=== PATIENT | male | born 1950 | race Caucasian/White ===

== ENCOUNTER 2022-08-31 06:12 | Emergency (ER) | payer MEDICARE, BC, SELFPAY ==
[2022-08-31 06:16] VITALS: BP 188/111; PULSE 88; RESP 18; TEMP 36.5; O2SAT 95; BMI 28.0
--- NOTE | 2022-08-31 06:33 | ED.GENADULT ---
HPI - General Adult General Chief complaint: Headache/Migraine Stated complaint: Severe Headache/sore throat Time Seen by Provider: 08/31/22 06:24 History of Present Illness HPI narrative: Pt is a 71 year old gentleman who presents with severe headache. Pt has been struggling with headaches for the past several months. The headache is diffuse and dull. No neurological symptoms. No stiff neck, fevers or chills. Minimal nausea. No vomiting. Pt has not tried any over the counter medications as he feels that those do no work for him. No photophobia or chest pain. Pt also has congestion and pharyngitis. No difficulty swallowing. Related Data Home Medications Medication Instructions Recorded Confirmed albuterol sulfate 90 mcg/actuation 2 inhalation PRN 05/27/22 08/15/22 aerosol inhaler escitalopram oxalate 20 mg tablet 20 mg PO DAILY 05/27/22 08/15/22 finasteride 5 mg tablet 5 mg PO DAILY 05/27/22 08/15/22 fluticasone 250 mcg-salmeterol 50 1 inh inhalation BID PRN 05/27/22 08/15/22 mcg/dose blistr powdr for inhalation omeprazole 40 mg capsule,delayed mg PO DAILY 05/27/22 08/15/22 release tamsulosin 0.4 mg capsule 0.8 mg PO DAILY 05/27/22 08/15/22 lisinopril 20 mg tablet 40 mg PO DAILY 07/19/22 08/15/22 Previous Rx's Medication Instructions Recorded celecoxib 200 mg capsule 200 mg PO BID #60 caps 07/19/22 azithromycin 250 mg tablet See Rx Instructions PO .COMPLEX #6 08/15/22 tabs Allergies Allergy/AdvReac Type Severity Reaction Status Date / Time rosuvastatin AdvReac Intermediate Diarrhea Verified 08/15/22 09:55 atorvastatin AdvReac Mild Diarrhea Verified 08/15/22 09:55 Clavulanate Allergy Mild Rash Uncoded 08/15/22 09:55 AMOXICILLIN-POT CLAVULANATE Allergy Unknown Uncoded 08/15/22 09:55 Review of Systems Status of ROS: Reports: 10 or more systems reviewed and unremarkable except as noted in History and below 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 EYES: No scleral icterus. ENT: Tympanic membranes and oropharynx normal. THYROID: no thyroid nodules or thyromegaly. LYMPH: No supraclavicular or cervical lymphadenopathy. SKIN: Visible skin seen during exam normal or with benign process only. EXT: No dependent lower extremity pedal edema. HEART: Regular rate and rhythm with no murmurs, rubs, or gallops. LUNGS: Clear to auscultation bilaterally with no crackles or wheezes. ABD: Soft, non tender, non distended. PSYCH: Good eye contact, speech is not pressured. Const: Vital Signs, click to edit/add: Vital Signs - 24 hr 08/31/22 06:16 Temperature 97.7 F Pulse Rate [Right Pulse Oximeter] 88 Respiratory Rate 18 Blood Pressure [Ri ght Upper Arm] 188/111 H Pulse Oximetry 95 Oxygen Delivery Me thod Room Air Course Course Hospital Course: Pt seen and examined. Strep, COVID, Influenza and RSV swabs collected. Pt given Normal Saline 1 liter, 4 of IV Zofran, 30 mg IV Toradol and 50 mg of IV Benadryl. Reevaluation(s) Reevaluation #1: Pt feeling better. Swabs still pending. Time: 07:27 Vital Signs Vital signs: Initial Vital Signs Temperature 97.7 F 08/31/22 06:16 Temperature Source Temporal Artery Scan 08/31/22 06:16 Pulse Rate 88 08/31/22 06:16 Respiratory Rate 18 08/31/22 06:16 Blood Pressure 188/111 H 08/31/22 06:16 Blood Pressure Mean 136 08/31/22 06:16 Blood Pressure Position Sitting 08/31/22 06:16 Pulse Oximetry 95 08/31/22 06:16 Oxygen Delivery Method 08/31/22 06:16 Vital Signs Temperature 97.7 F 08/31/22 06:16 Pulse Rate 88 08/31/22 06:16 Respiratory Rate 18 08/31/22 06:16 Blood Pressure 188/111 H 08/31/22 06:16 Pulse Oximetry 95 08/31/22 06:16 Oxygen Delivery Method 08/31/22 06:16 Temperature 97.7 F 08/31/22 06:16 Pulse Rate 88 08/31/22 06:16 Respiratory Rate 18 08/31/22 06:16 Blood Pressure 188/111 H 08/31/22 06:16 Pulse Oximetry 95 08/31/22 06:16 Oxygen Delivery Method 08/31/22 06:16 Medical Decision Making MDM Narrative Medical decision making narrative: Pt is a 71 year old gentleman with a history of chronic headaches who presents with worsening of diffuse headache as well as pharyngitis. Viral swabs collected. Vitals stable with exception of elevated blood pressure. Pt's exam normal. Pt given normal saline, zofran, toradol and benadryl and discharged with outpt follow up. We will contact him based on his viral swab results. Differential Diagnosis Differential Diagnosis: Chronic headache, viral syndrome, covid, strep throat, cluster headache, Discharge Plan Discharge Clinical Impression: Headache Patient Disposition: Home, Self-Care Condition: Stable Instructions: Acute Headache (ED) Additional Instructions: Rest Continue current medications We will contact you based on your viral swabs Activity Level: Activity as Tolerated Discharge Diet: Regular Prescriptions: No Action escitalopram oxalate 20 mg tablet 20 mg PO DAILY finasteride 5 mg tablet 5 mg PO DAILY albuterol sulfate 90 mcg/actuation HFA aerosol inhaler 2 inhalation PRN tamsulosin 0.4 mg capsule 0.8 mg PO DAILY omeprazole 40 mg capsule,delayed release(DR/EC) PO DAILY fluticasone propion-salmeterol 250-50 mcg/dose blister with device 1 inh inhalation BID PRN celecoxib 200 mg capsule 200 mg PO BID Qty: 60 12RF lisinopril 20 mg tablet 40 mg PO DAILY azithromycin 250 mg tablet See Rx Instructions PO .COMPLEX Qty: 6 0RF Rx Instructions: For 250 mg dose pack: take 500 mg today (day 1), then 250 mg for 4 days (days 2-5) PO Follow Up/Referrals: Marjan Sheth MD [Primary Care Provider] - Stand Alone Forms: [employer] Info Instructions
[2022-08-31] MEDS: ONDANSETRON 2 MG/ML inj 4 MG IVP (06:58)
[2022-08-31] MEDS: diphenhydrAMINE 50 MG/ML inj IVP (06:58)
[2022-08-31] MEDS: KETOROLAC 30 MG/ML inj IVP (06:58)
[2022-08-31] MEDS: 0.9 % SODIUM CHLORIDE 1000 ml 1,000 ML IV (06:58)
[2022-08-31 07:21] LABS: Strep A DNA Probe* NOT DETECTED (Not Detectd)
[2022-08-31 07:32] LABS: PCR FLU A Negative PCR FLU A (Negative); PCR FLU B Negative PCR FLU B (Negative); PCR RSV Negative PCR RSV (Negative)
[2022-08-31 07:34] LABS: SARS PCR* Negative SARS-CoV-2 (Negative)
[2022-08-31 08:00] VITALS: BP 154/90; PULSE 87; RESP 20; O2SAT 93
== END 2022-08-31 08:45 | disposition home or self-care (01) ==
PROVIDERS: Emergency Provider Internal Medicine; PCP Family Medicine
DX: R51.9 Headache, unspecified (principal); J02.9 Acute pharyngitis, unspecified; R03.0 Elevated blood-pressure reading, without diagnosis of hypertension; Z88.0 Allergy status to penicillin; Z88.1 Allergy status to other antibiotic agents; Z88.8 Allergy status to other drugs, medicaments and biological substances; Z87.891 Personal history of nicotine dependence; Z20.822 Contact with and (suspected) exposure to COVID-19
CPT/HCPCS: 87502; 87634; 87635; 87651; 96361; 96374; 96375; 99283; 99284; J1200; J1885; J2405; J7030

== ENCOUNTER 2022-09-02 11:05 | Outpatient (CLI) | payer MEDICARE, BC, SELFPAY ==
[2022-09-02 22:18] LABS: Albumin* 4.4 g/dL (3.3-5.0); Chloride* 103 mmol/L (96-114); Sodium* 141 mmol/L (135-149)
[2022-09-02 22:19] LABS: Potassium* 4.1 mmol/L (3.6-5.1)
[2022-09-02 22:20] LABS: Cholesterol* 186 mg/dL (90-199)
[2022-09-02 22:21] LABS: Alanine Aminotransferase* 33 U/L (4-50); Alkaline Phosphatase* 65 U/L (40-150); Aspartate Amino Transferase* 30 U/L (12-35); Bilirubin Total* 1.1 mg/dL (0.1-1.5); Blood Urea Nitrogen* 17 mg/dL (7-30); Carbon Dioxide* 29 mmol/L (20-32); Creatinine* 1.1 mg/dL (0.5-1.5); Estimated Glomerular Filt Rate 73 ml/min; Glucose* 135 mg/dL (60-115); Total Protein* 7.1 g/dL (6.0-8.3); Triglycerides* 140 mg/dL (40-149)
[2022-09-02 22:22] LABS: Calcium* 9.3 mg/dL (8.4-10.6); HDL Cholesterol* 54 mg/dL (>=40); LDL Cholesterol Calculated 104 mg/dL (<100)
[2022-09-02 22:26] LABS: Vitamin D 25 Hydroxy* 48 ng/mL (30-80)
[2022-09-02 22:58] LABS: Hepatitis C Virus Antibody* Negative (Negative)
== END 2022-09-02 11:06 | disposition home or self-care (01) ==
PROVIDERS: PCP Family Medicine; Visit Provider Family Medicine
DX: Z00.00 Encounter for general adult medical examination without abnormal findings (principal); R51.9 Headache, unspecified; E78.5 Hyperlipidemia, unspecified; M85.80 Other specified disorders of bone density and structure, unspecified site; R53.83 Other fatigue; Z13.6 Encounter for screening for cardiovascular disorders; Z11.59 Encounter for screening for other viral diseases
CPT/HCPCS: 80053; 80061; 82306; 86617; 86618; 86803

== ENCOUNTER 2022-10-28 10:28 | Emergency (ER) | payer MEDICARE, BC, SELFPAY ==
[2022-10-28 10:45] VITALS: BP 162/99; PULSE 84; RESP 18; TEMP 36.4; O2SAT 97; BMI 27.3
--- NOTE | 2022-10-28 10:57 | XR_ITS ---
Patient: BELA MEEKS Facility:?[facility] Patient ID:?[id number] Site Patient ID:?[id number]. Site :?[id number] Study:?XRay-Extremity Left HAND 3 VIEW-10/28/2022 11:15:58 AM Ordering Physician:?UNKNOWN UNKNOWN Final Report: INDICATION: Laceration along the palm. TECHNIQUE: Three views of the left hand. FINDINGS: No acute fracture, dislocation, or erosion. There is likely soft tissue swelling along the thenar eminence. On only one view there are 2 very tiny radiodensities apparently at the thenar eminence. Two tiny radiodense foreign bodies cannot be excluded although please note they are not seen on the other two views. IMPRESSION: 1. No acute fracture dislocation. 2. Soft tissue swelling seen at the eminence. 3. Two tiny radiodensity seen on the oblique view, not seen on the other views, potentially tiny radiodense foreign bodies in the soft tissues of the thenar eminence. Dictated by Isidoro Vegas MD @ 10/28/2022 11:22:44 AM Signed by:?Isidoro Vegas MD @10/28/2022 11:22:44 AM (Electronic Signature)
--- NOTE | 2022-10-28 11:00 | ED.WOUNDLAC ---
HPI - Wound/Laceration General Chief Complaint: Laceration/Wound Stated Complaint: r. hand lac Time Seen by Provider: 10/28/22 10:53 History of Present Illness HPI narrative: Pt is a healthy 71 year old gentleman who presents after lacerating his left palm with a laboratory apparatus glass grinder while making a stove for a sauna. Pt has full range of motion of the left hadn. No neurovascular defects. Pt is unsure of the status of his tetanus shot. Pt states the pain is mild-moderate. Pt otherwise uninjured and feels well. Pt is not on anticoagulants or antiplatelet agents. Related Data Home Medications Medication Instructions Recorded Confirmed albuterol sulfate 90 mcg/actuation 2 inhalation PRN 05/27/22 10/15/22 aerosol inhaler finasteride 5 mg tablet 5 mg PO DAILY 05/27/22 10/15/22 fluticasone 250 mcg-salmeterol 50 1 inh inhalation BID PRN 05/27/22 10/15/22 mcg/dose blistr powdr for inhalation omeprazole 40 mg capsule,delayed mg PO DAILY 05/27/22 10/15/22 release tamsulosin 0.4 mg capsule 0.8 mg PO DAILY 05/27/22 10/11/22 escitalopram oxalate 20 mg tablet 20 mg PO QDAY 10/15/22 10/15/22 sumatriptan succinate 50 mg tablet 50 mg PO ONCE PRN 10/15/22 Previous Rx's Medication Instructions Recorded lisinopril 40 mg tablet 40 mg PO QDAY #90 tabs 09/02/22 bupropion HCl 150 mg 24 hr tablet, 150 mg PO QAM #90 tabs 10/25/22 extended release Allergies Allergy/AdvReac Type Severity Reaction Status Date / Time rosuvastatin AdvReac Intermediate Diarrhea Verified 10/15/22 15:23 atorvastatin AdvReac Mild Diarrhea Verified 10/15/22 15:23 Clavulanate Allergy Mild Rash Uncoded 10/15/22 15:23 AMOXICILLIN-POT CLAVULANATE Allergy Unknown Uncoded 10/15/22 15:23 Review of Systems Status of ROS: Reports: 6 or more systems reviewed and unremarkable except as noted in History and below [facility] Medical History Acute appendicitis Acute maxillary sinusitis Asthma with acute exacerbation Umbilical hernia Surgical History History of colonoscopy History of laparoscopic appendectomy History of sinus surgery History of umbilical hernia repair Family History Father Coronary artery disease Brother Prostate cancer Other Anxiety disorder Social History Narrative: Former smoker 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 EYES: No scleral icterus. ENT: Tympanic membranes and oropharynx normal. THYROID: no thyroid nodules or thyromegaly. LYMPH: No supraclavicular or cervical lymphadenopathy. SKIN: Well-approximated moderately deep laceration linearly across the palmar aspect of the hand approximately 7 cm in length. EXT: No dependent lower extremity pedal edema. ABD: Soft, non tender, non distended. PSYCH: Good eye contact, speech is not pressured. Neuro No defects noted Const: Vital Signs, click to edit/add: Vital Signs - 24 hr 10/28/22 10:45 Temperature 97.6 F Pulse Rate [Right Pulse Oximeter] 84 Respiratory Rate 18 Blood Pressure [Ri ght Upper Arm] 162/99 H Pulse Oximetry 97 Oxygen Delivery Me thod Room Air Course Course Hospital Course: X ray ordered. Verifying tetanus status. Wound cleaned with soap and water. Wound anesthetized with 7 cc of 2% lidocaine. Wound then closed using sterile technique with 13 3-0 Ethylon sutures. Wound cleaned and dressed. Tdap up to date. Vital Signs Vital signs: Initial Vital Signs Temperature 97.6 F 10/28/22 10:45 Temperature Source Temporal Artery Scan 10/28/22 10:45 Pulse Rate 84 10/28/22 10:45 Respiratory Rate 18 10/28/22 10:45 Blood Pressure 162/99 H 10/28/22 10:45 Blood Pressure Mean 120 10/28/22 10:45 Blood Pressure Position Sitting 10/28/22 10:45 Pulse Oximetry 97 10/28/22 10:45 Oxygen Delivery Method 10/28/22 10:45 Vital Signs Temperature 97.6 F 10/28/22 10:45 Pulse Rate 84 10/28/22 10:45 Respiratory Rate 18 10/28/22 10:45 Blood Pressure 162/99 H 10/28/22 10:45 Pulse Oximetry 97 10/28/22 10:45 Oxygen Delivery Method 10/28/22 10:45 Temperature 97.6 F 10/28/22 10:45 Pulse Rate 84 10/28/22 10:45 Respiratory Rate 18 10/28/22 10:45 Blood Pressure 162/99 H 10/28/22 10:45 Pulse Oximetry 97 10/28/22 10:45 Oxygen Delivery Method 10/28/22 10:45 MDM - Wound/Laceration MDM Narrative Medical decision making narrative: Pt presents with laceration on the left palm as described above. Wound was cleaned, anesthetized and closed with 13 sutures. Wound care explained. Will place on Keflex due to location of the wound. Suture removal in 8 days. Differential Diagnosis Differential diagnosis: Likely laceration, abrasion and avulsion of skin Medical Records Attestation: I reviewed the patient's medical records. Discharge Plan Discharge Clinical Impression: Laceration Condition: Stable Instructions: Laceration (ED) Additional Instructions: Follow up with PCP for wound assesment next Tuesday Keflex as directed Activity Level: No Restrictions Discharge Diet: Regular Prescriptions: No Action finasteride 5 mg tablet 5 mg PO DAILY albuterol sulfate 90 mcg/actuation HFA aerosol inhaler 2 inhalation PRN tamsulosin 0.4 mg capsule 0.8 mg PO DAILY omeprazole 40 mg capsule,delayed release(DR/EC) PO DAILY fluticasone propion-salmeterol 250-50 mcg/dose blister with device 1 inh inhalation BID PRN escitalopram oxalate 20 mg tablet 20 mg PO QDAY sumatriptan succinate 50 mg tablet 50 mg PO ONCE PRN lisinopril 40 mg tablet 40 mg PO QDAY Qty: 90 3RF bupropion HCl 150 mg tablet extended release 24 hr 150 mg PO QAM Qty: 90 3RF Follow Up/Referrals: Marjan Sheth MD [Primary Care Provider] - Stand Alone [facility]
--- NOTE | 2022-10-28 12:15 | ED.NURSE ---
L palm sutured, bacitracin, telfa and kerlex applied.
== END 2022-10-28 12:16 | disposition home or self-care (01) ==
PROVIDERS: Emergency Provider Internal Medicine; PCP Family Medicine
DX: S61.412A Laceration without foreign body of left hand, initial encounter (principal); W31.89XA Contact with other specified machinery, initial encounter
CPT/HCPCS: 12002; 73130; 99283

== ENCOUNTER 2023-01-25 12:57 | Outpatient (CLI) | payer MEDICARE, BC, SELFPAY ==
--- OUTSIDE RECORDS SUMMARY | 2023-01-28 13:19 | XMS_ITS | Continuity of Care Document ---
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 - Active fluticasone propionate 50 mcg/actuation nasal spray,suspension Inhale 1 [place] into both nostrils once daily. - Active fexofenadine (LUZMA) 180 mg tablet Take 1 tablet by mouth once daily. - Active Prilosec OTC 20 mg tablet,delayed release Take one tablet daily - Active escitalopram 20 mg tablet take 1 tablet by oral route every day 20 MG - Active tamsulosin 0.4 mg capsule take 1 capsule by oral route 2 times every day 1/2 hour following the same meal each day 0.4 MG - Active lisinopril 20 mg tablet take 1 tablet by oral route every day 20 MG - Active finasteride 5 mg tablet take 1 tablet by oral route every day 5 MG - Active Procedures Procedure Date OFFICE/OUTPATIENT VISIT, EST OFFICE/OUTPATIENT VISIT, [facility] Advance Directives Directive Yes / No Effective Date File Name No Information Encounters Encounter Description Practice Location Reason(s) For Visit Diagnoses Date Provider Providers Copied on Encounter OFFICE/OUTPAT IENT VISIT, [facility], [address] [place], [id number], [place] tel:[phone] [facility] Facial Pain (chief complaint) Chronic pain syndromeFacial painOther penitentiary (current) drug therapy 2 Nyongesa Debbie. [address], [place], [place], [id number] , [place]. tel:[phone] Referring Provider: Xander Cummings, [address] [place] [address] [place], [address] . tel:[phone] [facility], [address] [place] [address] [place], [place], [id number], [place] tel:[phone] [facility] No Information 2 Will Xander. [address] [place], [id number] , [place]. tel:[phone] OFFICE/OUTPAT IENT VISIT, [facility], [address] [place], [id number], [place] tel:[phone] [facility] Facial Pain (chief complaint) Chronic pain syndromeFacial painOther chief of pediatric urology (current) drug therapy 2 Nyongesa Debbie. [address] [facility] [address], [place], [id number] , [place]. tel:[phone] Referring Provider: Xander Cummings, [address] [place] [address] [place], [address] . tel:[phone] [facility], [address] [place], [id number], [place] tel:[phone] [facility] No Information 2 Nyongesa Debbie. [address] [facility] [address], [place], [id number] , [place]. tel:[phone] Family History Family Member Type Diagnosis Age At Onset No Information Payers Payer name Insurance type Covered republican ID Miguelito kimball(s) Medicare MB [id number] Blue Cross Senior Gold Supplement BL [id number] Social History Type Description Quantity Date Captured Comments Alcohol Use Details 2 drinks daily Caffeine Use Details Unknown Tobacco Use Status Current non-smoker Smoking Status Never smoker Sex Male Chief Complaint And Reason For Visit From encounter dated 07/19/2022 13:20'. Facial Pain (chief complaint). Description: The problem has improved. The frequency of pain is persistent. Pertinent negatives include fever, nausea and vomiting. Reason For Referral Reason For Referral No Information Plan Of Treatment Date Type Action Status Goal Lipid panel. Due on due Goal Height. Due on d ue Goal PHQ-9. Due on du e Goal FIT-DNA. Due on due Goal FIT. Due on due Goal Zoster vaccine (). Due on due Goal Medication Reconciliation. D ue on due Goal Hepatitis C screening. Due o n due Goal Unhealthy drug use screening . Due on due Goal Tobacco Use. Due on due Goal Weight. Due on d ue Goal Update Social History. Due o n due Goal CT-Colonography. Due on due Goal Review Allergy List. 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 Due on due Goal Order Annual PT. Due on due Goal Creatinine. Due on due Goal AST (SGOT). Due on due Goal CLEANING CUSTODIAN Scanned. Due on due Goal OARS. Due on due Goal ALT (SGPT). Due on due Goal UDT. Due on due Goal Creatinine. 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 Due on due Goal Order Annual PT. Due on due Goal AST (SGOT). Due on due Goal CLEANING CUSTODIAN Scanned. Due on due Goal OARS. Due on due Goal ALT (SGPT). Due on due Goal UDT. Due on due Goal Height. Due on d ue Goal Medication Reconciliation. D ue on due Goal Review Allergy List. Due on due Goal Lipid panel. Due on due Goal Weight. Due on d ue Goal Zoster vaccine (1st). Due on due Goal Hepatitis C screening. Due o n due Goal PHQ-9. Due on du e Goal FIT. Due on due Goal CT-Colonography. Due on due Goal FIT-DNA. Due on due Goal Update Social History. Due o n due Goal Tobacco Use. Due on due Goal Unhealthy drug use screening . Due on due Goal Lipid panel. Due on due Goal Weight. Due on d ue Goal Zoster vaccine (1st). Due on due Goal Hepatitis C screening. Due o n due Goal PHQ-9. Due on du e Goal FIT. Due on due Goal CT-Colonography. Due on due Goal Review Allergy List. Due on due Goal Height. Due on d ue Goal Medication Reconciliation. D ue on due Goal FIT-DNA. Due on due Goal Update Social History. Due o n due Goal Tobacco Use. Due on due Goal Unhealthy drug use screening . Due on due History Of Present Illness Encounter Date Complaint History Of Prese nt Illness Facial Pain The problem has improved. The frequency of pain is persistent. Pertinent negatives include fever, nausea and vomiting. Comments: Eduardo is a 71 y/o male who presents for follow up after initial consultation and medication refill in the setting of chronic facial pain, most prominent in the forehead and sinus. Pain has been improving this month. Inquires if he should follow through with his appointment [facility] even though he has experienced significant benefit with Celebrex.Reports current medication provides significant pain relief and allows for increased functionality. Since being on Celebrex, he has seen an improvement in facial pain. Wonders if Celebrex is the same as other medications with the possibility he will build a tolerance. Denies OIC or other side effects from current medication regimen. No other concerns today. Comments: Eduardo is a 71 y/o male who presents in-clinic today for initial consultation in the setting of chronic facial pain, most prominent in the forehead and sinus. He is self-referred. Shares the pain began gradually about 14 months ago which he initially thought was a sinus infection. He states he consulted with an EMT and was prescribed several rounds of antibiotics for the possible sinus infections. Notes he followed up with another specialist for the ongoing issue and was told he did not have a sinus infection. He reports he went through intensive diagnostic testing with [facility] and believes the facial pain was d/t possible spinal fluid leak. Tried a blood patch for the possible fluid leak with no relief. Continues to endorse facial pain with occasional headaches in the back of the head. Believes the pain he is experiencing now is d/t the long-term effects of COVID-19 as he noticed symptoms of brain fog and fatigue. He states the pain increases throughout the day and is suddenly relieved when he lays down for bed. Pain averages 7/10 for this month. Currently managed on Moody 5-325mg and Prednisone with moderate relief. He states the medication helped temporarily take away the pain. Notes the Prednisone is significantly helpful with managing the pain and expressed worry over possible increase in pain when his prescription runs out. Patient is interested in pain management from [facility]. No other concerns today. Facial Pain Duration of pain when it occurs is 20 minutes to several hours. The problem has worsened. The frequency of pain is persistent. The client reports the pain level is 7/10. Location of pain is bilateral forehead, around both eyes, around the nose and bilateral jaw. The client describes the pain as aching, burning, stabbing and throbbing. Symptoms are triggered by movement and as the day progresses. Pertinent negatives include fever. Functional Status Date Functional Assessmen t No Information Instructions Date Instruction Additional Infor mation No Information Assessments Type Assessment Date assessment Chronic pain syndrome 2 impression Eduardo is a 71 y/o ma le who presents with chronic facial pain, most prominent in the forehead and sinuses worse with laying down. He has been told that ongoing issues might be d/t the long-term effects of COVID-19 as he endorses symptoms like brain fog and fatigue. Pain has progressively worsened over the past several years. The patient has seen [facility] for evaluation, no specific cause identified. [facility] thought his positional headaches could be due to spinal fluid leak and ended up having blood patch without benefit. Antibiotics for chronic sinusitis did not help. Prednisone helped and Moody 5-325mg helped as well assessment Facial pain impression Persistent facial pa in, most prominent in the forehead and sinuses, with occasional occurrence of headaches. Face pain worse with laying down assessment Other chief of pediatric urology (current) drug t herapy impression Has been managed on Prednisone and Moody 5-325mg. Last filled Moody 5-325mg #6 on 06/15/[address] [facility] A [facility] and is consistent with the patient's medication history. Criminal background check showed no concerning convictions Mental Status Date Cognitive Assessment Orientation - [place] ed to time, place, person, situation. Patient Care Teams Name Effective Dates (start - stop) Status Members No Information
== END 2023-01-25 12:58 | disposition home or self-care (01) ==
LOC: NFLDREF 01-28 13:16
PROVIDERS: PCP Family Medicine; Referring Provider Family Medicine; Visit Provider Family Medicine
DX: I10 Essential (primary) hypertension (principal); R51.9 Headache, unspecified; R53.83 Other fatigue; R73.09 Other abnormal glucose
CPT/HCPCS: 86039; 86140

== ENCOUNTER 2023-07-13 09:25 | Outpatient (CLI) | payer MEDICARE, BC, SELFPAY ==
--- OUTSIDE RECORDS SUMMARY | 2023-07-13 09:38 | XMS_ITS | Continuity of Care Document ---
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 - Active [...] Procedure Date OFFICE/OUTPATIENT VISIT, EST OFFICE/OUTPATIENT VISIT, [facility] Advance Directives Directive Yes / No Effective Date File Name No Information Encounters Encounter Description Practice Location Reason(s) For Visit Diagnoses Date Provider Providers Copied on Encounter OFFICE/OUTPAT IENT VISIT, [facility], [address] [place], [id number], [place] [phone] [facility] Facial Pain (chief complaint) Chronic pain syndromeFacial painOther long term care social worker (current) drug therapy 2 Nyongesa Debbie. [address], [place], [place], [id number] , [place]. tel:[phone] Referring Provider: Xander Cummings, [address] [place] [address] [place], [address] . tel:[phone] [facility], [address] [place] [address] [place], [place], [id number], [place] tel:[phone] [facility] No Information 2 Will Xander. [address] [place], [id number] , [place]. tel:[phone] OFFICE/OUTPAT IENT VISIT, [facility], [address] [place], [id number], [place] tel:[phone] [facility] Facial Pain (chief complaint) Chronic pain syndromeFacial painOther custodial (current) drug therapy 2 Nyongesa Debbie. [address] [address] [facility] [address], [place], [id number] , [place]. tel:[phone] Referring Provider: Xander Cummings, [address] [place] [address] [place], [address] . tel:[phone] [facility], [address] [place], [address], [place] tel:[phone] [facility] No Information 2 Nyongesa Debbie. [address] [address] [facility] [address], [place], [address] , [place]. tel:[phone] Family History Family Member Type Diagnosis Age At Onset No Information Payers Payer name Insurance type Covered libertarian ID Miguelito kimball(s) Medicare MB [id number] Blue Cross Senior Gold Supplement [id number] Social History Type Description Quantity Date Captured [...] Of Treatment Date Type Action Status Goal UDT. Due on due Goal ALT (SGPT). Due on due Goal OARS. 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 Due on due Goal AST (SGOT). Due on due Goal Creatinine. Due on due Goal Order Annual PT. 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 Due on due Goal Review Allergy List. Due on due Goal CT-Colonography. Due on due Goal Update Social History. Due o n due Goal Weight. Due on d ue Goal Lipid panel. Due on due Goal Height. Due on d ue Goal PHQ-9. Due on du e Goal FIT-DNA. Due on due Goal FIT. Due on due Goal Zoster vaccine (1st). Due on due Goal Medication Reconciliation. D ue on due Goal Hepatitis C screening. Due o n due Goal Unhealthy drug use screening . Due on due Goal Tobacco Use. Due on due Goal UDT. Due on due Goal ALT (SGPT). Due on due Goal OARS. 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 Due on due Goal AST (SGOT). Due on due Goal Order Annual PT. 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 Due on due Goal Creatinine. Due on due Goal Lipid panel. Due [...] Date Complaint History Of Prese nt Illness Comments: Eduardo is a 71 y/o male [...] current medication regimen. No other concerns today. Facial Pain The problem has improved. The [...] he went through intensive diagnostic testing with [facility] and believes the facial pain was [...] 7/10 for this month. Currently managed on [place] 5-325mg and Prednisone with moderate relief. He states the medication helped temporarily take away the pain. Notes the Prednisone is significantly helpful with managing the pain and expressed worry over possible increase in pain when his prescription runs out. Patient is interested in pain management from [facility]. No other concerns today. Facial Pain Duration [...] Type Assessment Date assessment Chronic pain syndrome impression Eduardo is a 71 y/o ma [...] years. The patient has seen [facility] for evaluation, no specific cause identified. [facility] thought his positional headaches could be due to spinal fluid leak and ended up having blood patch without benefit. Antibiotics for chronic sinusitis did not help. Prednisone helped and [place] 5-325mg helped as well assessment Facial pain impression Persistent facial pa in, most prominent in the forehead and sinuses, with occasional occurrence of headaches. Face pain worse with laying down assessment Other custodial (current) drug t herapy impression Has been managed on Prednisone and [place] 5-325mg. Last filled [place] 5-325mg #6 on 06/15/[address] Miguel A Cunningham[facility] and is consistent with the patient's medication history. Criminal background check showed no concerning convictions Mental Status Date Cognitive Assessment Orientation - [place] ed to time, place, person, situation. Patient Care Teams Name Effective Dates (start - stop) Status Members No Information
== END 2023-07-13 09:26 | disposition home or self-care (01) ==
PROVIDERS: PCP Family Medicine; Visit Provider Physician Assistant Medical
DX: R79.89 Other specified abnormal findings of blood chemistry (principal); U09.9 Post COVID-19 condition, unspecified
CPT/HCPCS: 82728; 86769

== ENCOUNTER 2024-01-06 08:55 | Outpatient (CLI) | payer MEDICARE, BC, SELFPAY | END 2024-01-06 08:56 | disposition home or self-care (01) | LOC: NFLDREF 01-09 02:51 | PROVIDERS: PCP Family Medicine; Referring Provider Family Medicine; Visit Provider Physician Assistant Medical | DX: E78.5 Hyperlipidemia, unspecified (principal); I10 Essential (primary) hypertension; R73.09 Other abnormal glucose; Z12.5 Encounter for screening for malignant neoplasm of prostate | CPT/HCPCS: 80048; 80061; G0103 ==

== ENCOUNTER 2025-01-08 09:41 | Outpatient (CLI) | payer MEDICARE, BC, SELFPAY | END 2025-01-08 09:42 | disposition home or self-care (01) | LOC: NFLDREF 01-12 00:14 | PROVIDERS: PCP Physician Assistant Medical; Referring Provider Family Medicine; Visit Provider Physician Assistant Medical | DX: E78.2 Mixed hyperlipidemia (principal); I10 Essential (primary) hypertension; N40.1 Benign prostatic hyperplasia with lower urinary tract symptoms; R35.0 Frequency of micturition; Z12.5 Encounter for screening for malignant neoplasm of prostate; Z13.29 Encounter for screening for other suspected endocrine disorder; Z13.21 Encounter for screening for nutritional disorder | CPT/HCPCS: 80053; 80061; 82607; 84443; G0103 ==